=== PATIENT | male | born 1940 | race Caucasian/White ===

== ENCOUNTER → 2017-04-04 | Outpatient (CLI) | payer OTHER ==
[~2017-04-04] VITALS: Ht 171.4 cm; Wt 57.7 kg
[~2017-04-04] MED LIST: AMARYL4 MG PO; AMLODIPINE-BEN1 EAC2 PO; B-12 KIT1000 MCG/1 IM; BYSTOLIC5 MG PO; Bystolic PO; Ceftin PO; FLOMAX0.4 MG PO; FLORASTOR250 MG PO; FORTAMET500 M1 PO; Flomax PO; GLUCOPHAGE1000 MG PO; Glucophage PO; JANUVIA100 MG PO; LO-DOSE ASPIRIN81 M2 PO; LOTREL 5/101 CAPSULE PO; Lotrel 5/10 PO; MEN'S MULTI-VI1 EACH PO; METOPROLOL TART25 MG PO; PRAVASTATIN SOD40 MG PO; SIMVASTATIN20 MG PO; Zocor PO
[2017-04-04 10:37] LABS: POINT-OF-CARE METER ID UU14107333
== END | disposition home or self-care (01) ==
LOC: AMB 09:51
PROVIDERS: Internal Medicine
PROC: 0DB68ZX Excision of Stomach, Via Natural or Artificial Opening Endoscopic, Diagnostic (ICD-10-PCS; principal; 2017-04-04)
DX: K29.50 Unspecified chronic gastritis without bleeding (principal); B96.81 Helicobacter pylori [H. pylori] as the cause of diseases classified elsewhere; K44.9 Diaphragmatic hernia without obstruction or gangrene; R68.81 Early satiety; R63.4 Abnormal weight loss; D64.9 Anemia, unspecified; R49.0 Dysphonia; R05 Cough; Z86.010 Personal history of colon polyps; E11.319 Type 2 diabetes mellitus with unspecified diabetic retinopathy without macular edema; Z79.84 Long term (current) use of oral hypoglycemic drugs; Z79.82 Long term (current) use of aspirin; I10 Essential (primary) hypertension; K57.30 Diverticulosis of large intestine without perforation or abscess without bleeding; E78.1 Pure hyperglyceridemia; E78.5 Hyperlipidemia, unspecified; E87.1 Hypo-osmolality and hyponatremia; D72.829 Elevated white blood cell count, unspecified
CPT/HCPCS: 82948; 88305; 88342 TC; 93005

== ENCOUNTER 2017-08-12 12:15 | Emergency (ER) | payer OTHER ==
[~2017-08-12] VITALS: Ht 170.2 cm; Wt 58.5 kg
[2017-08-12 14:01] LABS: HEMATOCRIT 34.3 % (38.0-50.0); HEMOGLOBIN 11.6 G/DL (12.5-16.6); MCH 28.9 PG (29.0-34.0); MCHC 33.8 G/DL (30.0-36.0); MCV 85.3 FL (86-99); PLATELET COUNT 192 K/uL (156-360); RBC DIS.WIDTH-CV 12.6 % (11.8-14.6); RBC DIS.WIDTH-SD 39.1 % (39-53); RED BLOOD COUNT 4.02 M/uL (4.00-5.50); WHITE BLOOD COUNT 20.8 K/uL (4.1-10.2)
[2017-08-12 14:10] LABS: CHLORIDE 102 mEq/L (99-109); POTASSIUM 4.2 mEq/L (3.7-5.4); SODIUM 136 mEq/L (136-147)
[2017-08-12 14:12] LABS: GLUCOSE 143 mg/dL (70-99)
[2017-08-12 14:16] LABS: GFR ESTIMATE (CALCULATED) > 59 mL/min/ (58.99-99999); UREA NITROGEN (BUN) 22 mg/dL (9-23)
[2017-08-12 14:38] LABS: ALBUMIN 3.8 g/dL (3.2-4.8)
[2017-08-12 14:41] LABS: TOTAL PROTEIN 7.3 g/dL (6.4-8.3)
[2017-08-12 14:42] LABS: TOTAL BILIRUBIN 0.8 mg/dL (0.0-1.0)
[2017-08-12 14:43] LABS: ALKALINE PHOSPHATASE 58 IU/L (3-129)
[2017-08-12 14:46] LABS: AST (GOT) 13 IU/L (2-34); DIRECT BILIRUBIN 0.4 mg/dL (0.0-0.3)
[2017-08-12 14:47] LABS: ALT (GPT) 9 IU/L (3-49)
[2017-08-12] MEDS ORDERED: TESSALON200 MG PO (15:00)
[2017-08-12] MEDS ORDERED: ROBITUSSIN NIG237 ML PO (15:00)
[2017-08-12] MEDS ORDERED: LEVAQUIN750 MG PO (15:00)
[2017-08-12 15:19] VITALS: BP 151/77
== END 2017-08-12 15:10 | disposition home or self-care (01) ==
LOC: EME 12:15
DX: J18.9 Pneumonia, unspecified organism (principal); E11.9 Type 2 diabetes mellitus without complications; I10 Essential (primary) hypertension; E78.5 Hyperlipidemia, unspecified; Z79.84 Long term (current) use of oral hypoglycemic drugs; Z79.82 Long term (current) use of aspirin
CPT/HCPCS: 71046; 80048; 80076; 82948; 85027

== ENCOUNTER → 2017-10-14 | Outpatient (CLI) | payer OTHER ==
[~2017-10-14] MED LIST changes: +LEVAQUIN750 MG PO; +ROBITUSSIN NIG237 ML PO; +TESSALON200 MG PO
== END | disposition home or self-care (01) ==
DX: R13.12 Dysphagia, oropharyngeal phase (principal)
CPT/HCPCS: 92611 GN; G8996 GN; G8997 GN; G8998 GN

== ENCOUNTER → 2017-10-31 | Outpatient (CLI) | payer OTHER ==
[~2017-10-31] VITALS: Ht 171.4 cm; Wt 53.5 kg
[~2017-10-31] MED LIST changes: +CYANOCOBALAM1000 MCG PO; +MULTIVITAM9 MG/15 M1 PO; +OMEPRAZOLE40 M1 PO
== END | disposition home or self-care (01) ==
LOC: AMB 11:58
PROVIDERS: Internal Medicine
DX: K29.70 Gastritis, unspecified, without bleeding (principal); T18.128A Food in esophagus causing other injury, initial encounter; K22.8 Other specified diseases of esophagus; K44.9 Diaphragmatic hernia without obstruction or gangrene; R13.10 Dysphagia, unspecified; D64.9 Anemia, unspecified; R14.2 Eructation; R68.81 Early satiety; K21.9 Gastro-esophageal reflux disease without esophagitis; I10 Essential (primary) hypertension; E11.9 Type 2 diabetes mellitus without complications; E78.1 Pure hyperglyceridemia; G20 Parkinson's disease
CPT/HCPCS: 82948; 88108; 88305; 88342 TC; J0585